=== PATIENT | male | born 1980 | race American Indian/Alaskan Native ===

== ENCOUNTER 2019-09-02 11:45 | Emergency (ER) | payer SELFPAY ==
[2019-09-02 13:36] VITALS: BP 148/100
--- NOTE | 2019-09-02 13:47 | Emergency Department Report ---
HPI - General Chief Complaint: Back Pain/Injury - HPI HPI: 39 yo AA M presents to the ED with the complaint of a 2 week hx of left lower back pain that radiates to the buttock. He has a history of previous back surgery x 2 with [facility]. He has contacted them but does not have an established appointment yet. No numbness or paresthesias, problems with bowel or bladder, difficulty walking, or any neurological deficits. He has taken some previous pain medications that he had at home without relief. No recent fall, trauma or injury. ED Past Medical Hx - Past Medical History Previous Medical History?: Yes Additional medical history: CHRONIC BACK PAIN - Surgical History Additional Surgical History: SPINAL SURG. FUSION SURG LOW BACK DISC SURG ON NECK - Social History Smoking Status: Unknown if ever smoked ED Review of Systems ROS: Stated complaint: BACK PAIN Other details as noted in HPI Physical Exam - Physical Exam Vital Signs: Vital Signs 09/02/19 11:48 Temperature 97.9 F Pulse Rate 77 Respiratory 18 Rate Blood Pressure 148/100 O2 Sat by Pulse 97 Oximetry Physical Exam: GEN: Ambulatory, alert. Well developed. No acute distress. MUSC: No obvious deformities. Full ROM. BACK: No midline thoracic or lumbar tenderness to palpation, step off or deformity. There is some reproducible left lumbar paraspinal TTP. ED Course Vital Signs 09/02/19 11:48 Temperature 97.9 F Pulse Rate 77 Respiratory 18 Rate Blood Pressure 148/100 O2 Sat by Pulse 97 Oximetry ED Medical Decision Making - Medical Decision Making 2 week history of back pain. Hx of chronic back pain. No midline TTP, step off or deformity. Patient ambulated into the room and out of the room without difficulty. No problems with bowel or bladder, numbness or paresthesias or any neurological deficits. VSS. He has good follow up with his spinal surgeon. He has been evaluated by me and does not appear to have any life threating, limb threatening or emergent condition. Patient will be screened out but has been instructed to return to the ED with any worsening of his symptoms, any neurological deficits, or with any acute distress. Critical Care Time: No Critical care attestation.: If time is entered above; I have spent that time in minutes in the direct care of this critically ill patient, excluding procedure time. ED Disposition Clinical Impression: Low back pain Qualifiers: Chronicity: unspecified Back pain laterality: left Sciatica presence: with sciatica Sciatica laterality: sciatica of left side Qualified Code(s): M54.42 - Lumbago with sciatica, left side Sciatica Qualifiers: Laterality: left Qualified Code(s): M54.32 - Sciatica, left side Disposition: [facility] SCREENING EXAM-LEFT Is pt being admited?: No Condition: Stable Instructions: Sciatica (ED), Back Pain (ED) Additional Instructions: Please follow up with your spinal surgeon. Return to the emergency department with any worsening of your symptoms, weakness, numbness, trouble using the bathroom, or any acute distress. Referrals: Spinal Surgeon, Your [Other] - 2-3 Days Time of Disposition: 13:47
== END 2019-09-02 13:53 | disposition left against medical advice (07) ==
LOC: ED 11:45
DX: M54.5 Low back pain (principal); M54.32 Sciatica, left side; Z98.890 Other specified postprocedural states
CPT/HCPCS: 99281